=== PATIENT | female | born 1965 | race Caucasian/White ===

== ENCOUNTER → 2024-08-13 14:27 | Outpatient (REF) | payer OTHER, SELFPAY | LOC: HWWDC 14:27 | PROVIDERS: ATTENDING PHYSICIAN Nurse Practitioner | DX: Z12.31 Encounter for screening mammogram for malignant neoplasm of breast (principal) | CPT/HCPCS: 77063; 77067 ==

== ENCOUNTER → 2025-08-17 09:01 | Outpatient (REF) | payer OTHER, SELFPAY | LOC: HWWDC 09:01 | DX: Z12.31 Encounter for screening mammogram for malignant neoplasm of breast (principal) | CPT/HCPCS: 77063; 77067 ==

== ENCOUNTER → 2025-08-23 09:56 | Outpatient (REF) | payer OTHER, SELFPAY | LOC: PAVMRI 09:56 | DX: R41.89 Other symptoms and signs involving cognitive functions and awareness (principal) | CPT/HCPCS: 70551 ==